=== PATIENT | male | born 1970 | race Caucasian/White ===

== ENCOUNTER 2021-06-22 17:24 | Emergency (ER) | payer SELFPAY ==
--- NOTE | 2021-06-22 17:45 | PC.NURSE ---
PT IN TRIAGE STATES HE DOESN'T WANT TO GO BACK WITH COVID PT'S AND HE WANTS HIS SO TO COME TO ED WITH HIM. INFORMED PT THAT IF HE WANTED TO BE SEEN BY HE WOULD HAVE TO GO BACK TO A ROOM IN THE ED AND THE HOSP POLICY WAS NO VISITORS IN THE ED. PT STATES HE WAS GOING TO LEAVE.
[2021-06-22 17:48] VITALS: BP 0/0; PULSE 0; RESP 0; TEMP -17.7; TEMP 0; O2SAT 0
== END 2021-06-22 17:57 | disposition home or self-care (01) ==
LOC: ER 17:53
PROVIDERS: Emergency Provider Emergency Medicine
DX: Z53.21 Procedure and treatment not carried out due to patient leaving prior to being seen by health care provider (principal)
CPT/HCPCS: 99211

== ENCOUNTER 2022-02-23 12:36 | Emergency (ER) | payer MEDICAID, SELFPAY ==
[2022-02-23 12:37] VITALS: BP 167/94; PULSE 76; RESP 16; TEMP 37.1; O2SAT 97; BMI 35.9
--- NOTE | 2022-02-23 12:55 | [facility].EDGENADL ---
ED Disposition Clinical Impression: Partial thickness levine of multiple sites Disposition: Home, Self-Care Condition on Discharge: Good Instructions: DI for Levine Additional Instructions: Additional instructions for LEVINE: Clean your burn with a warm, wet, soapy washcloth each day by stroking over the burn one time. This will remove any loose blisters. Any blisters that remain will come off on subsequent days. Apply antibiotic ointment and bandage. Continue this treatment daily until the burn heals, usually 1-2 weeks. Return if high fever greater than 101 degrees, pus drainage, red streaks. [place] as needed for pain Additional instructions for CONTROLLED SUBSTANCES: You have been prescribed a medication that is a controlled substance. Controlled substances include pain medications known as opiates and sedative nerve medications known as benzodiazepines. Tramadol, fioricet, and gabapentin are also controlled substances. Some common opiates include: Codeine (such as Tylenol #3) Hydrocodone (Vicodin, Lortab, Lorcet, [place]) Oxycodone (Percocet, Percodan, Oxycodone, Oxy IR) Some common benzodiazepines include: Diazepam (Valium) Lorazepam (Ativan) Alprazolam (Xanax) Clonazepam (Klonopin) Oxazepam (Serax) All of these controlled substances are highly addictive and frequently abused. Misuse can and frequently does lead to addiction as well as overdose and . Medication should be stored in a locked cabinet or other secure storage unit. Do not store the medication in a motor vehicle. Short term supplies, 3 days or less, are prescribed because of the highly addictive nature of the medication. Any of the controlled substance medication NOT taken should be disposed of properly and NOT SAVED. The recommended method of disposing of unused medications is: Place the medicines in a sealable plastic bag. If the medicine is a solid, crush it or add water to dissolve it. Add something undesirable (cat litter, coffee grounds, etc.) Dispose of sealed bag in household trash Do not flush or pour unused medicines down a sink or drain. Controlled substances should not be shared, given away or sold. Because of the addictive nature and frequent abuse, these medications are sometimes stolen. These medications should be kept in a safe place where they cannot be stolen. Do not keep them in your car or purse. Lost or stolen prescriptions for controlled substances WILL NOT BE REFILLED in this emergency department, regardless of whether a police report was filed. Prescriptions: Hydrocod/Acet 5/325 mg [[place] 5/325mg tablet] 1 tab PO Q6HP PRN #10 tab PRN Reason: Pain Transmission Status: Sent to [id number] Referrals: Provider,Referral, [Primary Care Provider] - - Critical Care Critical Care Time: No Attestation: On 02/23/22, the high probability of a clinically significant, sudden or life threatening deterioration of the following system(s) required my full and direct attention, intervention and personal management. The time I documented below is in addition to time spent performing reported procedures but includes the following listed in this critical care notation. Medical Decision Making - Janusz Inquiry Pt receiving controlled substance: Yes Janusz was queried for this patient: Yes Risks and benefits of using a controlled substance: were discussed with pt by me Vital Signs: 02/23/22 12:37 Temperature 98.7 F Temperature Source Oral Pulse Rate [Right Radial] 76 Respiratory Rate 16 Blood Pressure [Right Arm] 167/94 H Blood Pressure Mean [Right Arm] 118 Blood Pressure Source [Right Arm] Automatic Cuff Blood Pressure Position [Right Arm] Sitting 02 Sat by Pulse Oximetry 97 Oxygen Delivery Method Room Air Orders (Tests/Meds): ED MEDICATIONS Discontinued Medications Generic Name Dose Route Start Last Admin Trade Name Freq PRN Reason Stop Dose Admin Hydrocodone Bitart/Acetami
--- NOTE | 2022-02-23 12:56 | PC.NURSE ---
ED MD at
[2022-02-23 13:34] VITALS: BP 141/79; PULSE 75; RESP 17; TEMP 36.8; O2SAT 98
== END 2022-02-23 13:35 | disposition home or self-care (01) ==
PROVIDERS: Emergency Provider Emergency Medicine
DX: T20.17XA Burn of first degree of neck, initial encounter (principal); T21.11XA Burn of first degree of chest wall, initial encounter; T20.211A Burn of second degree of right ear [any part, except ear drum], initial encounter; T20.24XA Burn of second degree of nose (septum), initial encounter; T20.22XA Burn of second degree of lip(s), initial encounter; T28.411A Burn of right ear drum, initial encounter; T31.0 Burns involving less than 10% of body surface; X08.8XXA Exposure to other specified smoke, fire and flames, initial encounter
CPT/HCPCS: 99283